=== PATIENT | female | born 1990 | race Caucasian/White ===

== ENCOUNTER 2016-11-01 12:36 | Emergency (ER) | payer MEDICAID ==
[~2016-11-01] VITALS: Ht 170.2 cm; Wt 78.0 kg
[2016-11-01 12:45] VITALS: BP 139/72; PULSE 90; RESP 16; TEMP 98.3; O2SAT 98
[2016-11-01] MEDS ORDERED: BENZ100 PO (13:06)
[2016-11-01] MEDS ORDERED: MOME17I EACH NARE (13:06)
[2016-11-01] MEDS ORDERED: IBUP800T23 PO (13:06)
[2016-11-01] MEDS ORDERED: AMOX500C PO (13:06)
--- NOTE | 2016-11-01 13:07 | PD ---
HPI Chief Complaint: Cold / Flu Symptoms Time Seen by Provider: 13:05 Travel History International Travel<30 days: No Contact w/Intl Traveler<30days: No Traveled to known affect area: No History of Present Illness HPI 26-year-old female presents to emergency Department with complaint of cough, nasal congestion, sore throat, bilateral ear pressure 4-5 days. Denies fever, vomiting. Denies chest pain, shortness of breath. Sore throat is worse in the morning and better throughout the day. Denies unusual drooling, lump in throat , difficulty swallowing. Has not taken any medications or tried any treatments to alleviate her symptoms. No known allergies. Her children are sick with similar symptoms. Has no other medical complaints. No other modifying factors or associated signs and symptoms. PFSH Past Medical History Medical History: Denies Significant Hx Tetanus Vaccination: Unknown ?: Unknown LMP: 10/27/16 : 3 Para: 2 Past Surgical History Surgical History: No Previous Surgery Social History Alcohol Use: Yes Tobacco Use: Yes Substance Use: No Allergies-Medications (Allergen,Severity, Reaction): Coded Allergies: No Known Allergies (Unverified , 11/01/16) Reported Meds & Prescriptions Reported Meds & Active Scripts Active Ibuprofen 800 Mg Tab 800 Mg PO Q6HR PRN Tessalon Perles (Benzonatate) 100 Mg Cap 100 Mg PO TID PRN Nasonex Nasal [place] (Mometasone Furoate) 50 Mcg/Act Naspr 2 [place] EACH NARE DAILY PRN Amoxicillin 500 Mg Cap 500 Mg PO BID 10 Days Review of Systems Except as stated in HPI: all other systems reviewed are Neg Physical Exam Narrative GENERAL: Well-nourished, well-developed female Patient, in no acute distress; afebrile, nontoxic-appearing SKIN: Warm and dry. No rash. HEAD: Atraumatic. Normocephalic. EYES: Pupils equal and round. No scleral icterus. No injection or drainage. ENT: Mucosa pink and moist. No erythema or exudates. No uvular edema. No uvular , palatal, or tonsillar deviation. Airway patent. EARS: Bilateral pinnae and external canals appear within normal limits. Bilateral tympanic membranes without erythema, dullness or perforation. NECK: Trachea midline. No lymphadenopathy. CARDIOVASCULAR: Regular rate and rhythm. No murmur appreciated. RESPIRATORY: No accessory muscle use. Clear to auscultation. Breath sounds equal bilaterally. No retractions or tachypnea. GASTROINTESTINAL: Abdomen soft, non-tender, nondistended. Hepatic and splenic margins not palpable. Bowel sounds are active 4 quadrants. MUSCULOSKELETAL: No obvious deformities. No clubbing. No cyanosis. No edema. NEUROLOGICAL: Awake and alert. Oriented 3. No obvious cranial nerve deficits. Motor grossly within normal limits. Normal speech. Moves all extremities. 5/5 strength to all extremities. PSYCHIATRIC: Appropriate mood and affect; insight and judgment normal. Data Data Last Documented VS Vital Signs Date Time Temp Pulse Resp B/P Pulse Ox O2 Delivery O2 Flow Rate FiO2 11/01/16 12:45 98.3 90 16 139/72 98 MDM Medical Decision Making Medical Screen Exam Complete: Yes Emergency Medical Condition: Yes Medical Record Reviewed: Yes Differential Diagnosis URI, sinusitis, viral illness, pharyngitis Narrative Course 26-year-old female with cough/cold symptoms 4-5 days. Suspecting viral illness. Patient is afebrile and nontoxic-appearing. Denies fever, vomiting. Patient requesting antibiotics. Amoxicillin, Nasonex nasal spray, Tessalon Perles, ibuprofen prescribed for home. Patient verbalizes understanding and agreement with treatment plan. Patient is medically cleared and stable for discharge. Discussed reasons to return to the emergency department. Instructed patient to follow up with primary care provider. Patient agrees with treatment plan. The patients vital signs are stable and the patient is stable for outpatient follow-up and treatment. Patient discharged home, stable and in no acute distress. Diagnosis Primary Impression: URI (upper respiratory infection) Qualified Code: J06.9 - Upper respiratory tract infection, unspecified type Referrals: Primary Care Physician Patient Instructions: Cold Symptoms (ED), General Instructions, Safe Use of Cough and Cold Medicines (ED), Upper Respiratory Infection (ED) Departure Forms: Tests/Procedures, Work Release Enter return to work date: Nov 01, 2016 Additional Instructions: Antibiotics as prescribed and complete full course Ibuprofen or Tylenol as instructed and as needed for fever/pain [id number] cough and cold medications as directed and as needed for symptom management Get plenty of sleep/rest Drink plenty of fluids to prevent dehydration; popsicles and Gatorade Use an air humidifier/turn off ceiling fans Follow-up with primary care provider Return immediately to the emergency department with worsening of symptoms Med/Other Pt SpecificInfo: Prescription(s) given Scripts Ibuprofen 800 Mg [id number] Mg PO Q6HR PRN (PAIN) #30 TAB Ref 0 Prov:Eliza JacquesP 11/01/16 Benzonatate (Tessalon Perles)100 Mg [id number] Mg PO TID PRN (COUGH) #10 CAP Ref 0 Prov:Eliza JacquesP 11/01/16 Mometasone Nasal [place] (Nasonex Nasal [place])50 Mcg/Act Naspr2 [place] EACH NARE DAILY PRN (NASAL CONGESTION) #1 BOTTLE Ref 0 Prov:Eliza JacquesP 11/01/16 Amoxicillin 500 Mg [id number] Mg PO BID 10 Days Ref 0 Prov:Eliza JacquesP 11/01/16 Disposition: 01 DISCHARGE HOME Condition: Stable Eliza Jacques Nov 01, 2016 13:07
== END 2016-11-01 13:13 | disposition home or self-care (01) ==
LOC: NEPK 12:36
DX: J06.9 Acute upper respiratory infection, unspecified (principal); R05 Cough; H93.93 Unspecified disorder of ear, bilateral; Z72.0 Tobacco use
CPT/HCPCS: 99284

== ENCOUNTER 2016-12-27 15:09 | Observation (INO) | payer MEDICAID ==
[~2016-12-27] VITALS: Ht 172.7 cm; Wt 77.0 kg
[~2016-12-27 15:09] MED LIST: AMOX500C PO; BENZ100 PO; IBUP800T23 PO; MOME17I EACH NARE
[2016-12-27 15:47] VITALS: BP 172/103; PULSE 117; RESP 18; TEMP 98.9; O2SAT 99
[2016-12-27] MEDS ORDERED: SODIUM CHLOR 0.9% 1000 ML INJ 1,000 ML IV SCH (16:16)
[2016-12-27 16:32] LABS: AUTOMATED NEUTROPHIL # 6.9 TH/MM3 (1.8-7.7); BASOPHIL % 0.3 % (0.0-2.0); BLOOD, URINE NEG (NEG); COMMENT (UR) CULT NOT INDICATED; CULTURE IF INDICATED CULT NOT INDICATED; GLUCOSE,URINE NEG (NEG); HEMATOCRIT 41.1 % (35.0-46.0); HEMO FLAGS DIFF FINAL; HYALINE CAST, URINE 43 /lpf (RARE); KETONE, URINE 10 mg/dL (NEG); LYMPH % 7.3 % (9.0-44.0); LYMPHOCYTE # 0.6 TH/MM3 (1.0-4.8); MEAN CELL VOLUME 94.1 FL (80.0-100.0); MEAN CORPUSCULAR HEMOGLOBIN 33.1 PG (27.0-34.0); MEAN CORPUSCULAR HGB CONC 35.2 % (32.0-36.0); MONO % 7.4 % (0.0-8.0); MUCUS URINE FEW /lpf (OCC); NITRITE,URINE NEG (NEG); PH, URINE 5.5 (5.0-8.5); PLATELET COUNT 171 TH/MM3 (150-450); RED BLOOD COUNT 4.37 MIL/MM3 (4.00-5.30); RED CELL DISTRIBUTION WIDTH 13.7 % (11.6-17.2); SQUAMOUS EPITHELIAL CELL URINE 2 /hpf (0-5); URINE COLOR YELLOW (YELLW/STRAW); WHITE BLOOD COUNT 8.1 TH/MM3 (4.0-11.0)
--- NOTE | 2016-12-27 16:38 | PD ---
HPI Chief Complaint: Seizure Time Seen by Provider: 16:35 Travel History International Travel<30 days: No Contact w/Intl Traveler<30days: No Traveled to known affect area: No History of Present Illness HPI 26-year-old female that presents to the ED for evaluation of seizure. Patient has a history of alcohol abuse and Xanax. she tells me that she's been abusing Xanax for the past 2 months. She is not given a prescription. Denies any chest pain or shortness of breath. States that she recently quit the Xanax about 8 days ago and she's been limiting her alcohol intake to wean herself out and today apparently per family and patient she had a seizure. She does not remember the seizure but per family member she had a witnessed episode of seizure. No head injury. She was helped to the floor. She denies any head injury. States that she does Xanax recreationally. She states that she's been feeling anxious for the past 8 days. No other medical issues. No history of depression or anxiety. No seizure history. No allergies to medication. Denies any other drug abuse. PFSH Past Medical History ?: Not : 3 Para: 2 Social History Alcohol Use: Yes Tobacco Use: Yes Substance Use: No Allergies-Medications (Allergen,Severity, Reaction): Coded Allergies: No Known Allergies (Unverified , 12/27/16) Reported Meds & Prescriptions Reported Meds & Active Scripts Active No Active Prescriptions or Reported Medications Review of Systems Except as stated in HPI: all other systems reviewed are Neg Physical Exam Narrative GENERAL: SKIN: Warm and dry. HEAD: Atraumatic. Normocephalic. EYES: Pupils equal and round. No scleral icterus. No injection or drainage. ENT: No nasal bleeding or discharge. Mucous membranes pink and moist. Tongue is midline. No uvula deviation. NECK: Trachea midline. No JVD. CARDIOVASCULAR: Regular rate and rhythm. RESPIRATORY: No accessory muscle use. Clear to auscultation. Breath sounds equal bilaterally. GASTROINTESTINAL: Abdomen soft, non-tender, nondistended. Hepatic and splenic margins not palpable. MUSCULOSKELETAL: Extremities without clubbing, cyanosis, or edema. No obvious deformities. Full range of motion of the upper and lower extremities bilaterally. 2+ pulses bilaterally. NEUROLOGICAL: Awake and alert. No obvious cranial nerve deficits. Motor grossly within normal limits. Five out of 5 muscle strength in the arms and legs. Normal speech. PSYCHIATRIC: Appropriate mood and affect; insight and judgment normal. Data Data Last Documented VS Vital Signs Date Time Temp Pulse Resp B/P Pulse Ox O2 Delivery O2 Flow Rate FiO2 12/27/16 17:59 18 100 Room Air 12/27/16 15:47 98.9 117 172/103 Orders Complete Blood Count With Diff (12/27/16 15:56) Comprehensive Metabolic Panel (12/27/16 15:56) Urinalysis - C+S If Indicated (12/27/16 15:56) Magnesium (Mg) (12/27/16 15:56) Iv Access Insert/Monitor (12/27/16 15:56) Drug Screen, Random Urine (12/27/16:56) Alcohol (Ethanol) (12/27/16:56) Lactic Acid (12/27/16 15:56) Sodium Chlor 0.9% 1000 Ml Inj (Ns 1000 M (12/27/16 16:16) Electrocardiogram (12/27/16 15:47) Lorazepam Inj (Ativan Inj) (12/27/16 17:45) Admit Order (Ed Use Only) (12/27/16 18:49) Comprehensive Metabolic Panel (12/28/16 06:00) Free Thyroxine (T4) (12/28/16 06:00) Hemoglobin (Hgb) A1c (12/28/16 06:00) Magnesium (Mg) (12/28/16 06:00) Phosphorus (Po4) (12/28/16 06:00) Thyroid Stimulating Hormone (12/28/16 06:00) Complete Blood Count With Diff (12/28/16 06:00) Place In Observation (12/27/16 ) Code Status (12/27/16 18:51) Vital Signs (Adult) Q4H (12/27/16 18:51) Neuro Checks Q4H (12/27/16 18:51) Activity Oob Ad Funmilayo (12/27/16 18:51) Emergency Services Director / Telemetry .CONTINUOUS (12/27/16 18:51) Intake + Output JAMEEL.QSHIFT (12/27/16 18:51) Diet Regular Basic (12/27/16 Dinner) D5-1/2 Ns + Kcl 20 Meq Inj (D5-1/2 Ns + (12/27/16 18:51) Sodium Chloride 0.9% Flush (Ns Flush) (12/27/16 19:00) Sodium Chloride 0.9% Flush (Ns Flush) (12/27/16 21:00) Acetaminophen (Tylenol) (12/27/16 19:00) Ondansetron Inj (Zofran Inj) (12/27/16 19:00) Metoclopramide Inj (Reglan Inj) (12/27/16 19:00) Labs Laboratory Tests Test 12/27/16 16:00 White Blood Count 8.1 TH/MM3 Red Blood Count 4.37 MIL/MM3 Hemoglobin 14.5 GM/DL Hematocrit 41.1 % Mean Corpuscular Volume 94.1 FL Mean Corpuscular Hemoglobin 33.1 PG Mean Corpuscular Hemoglobin 35.2 % Concent Red Cell Distribution Width 13.7 % Platelet Count 171 TH/MM3 Mean Platelet Volume 9.0 FL Neutrophils (%) (Auto) 85.0 % Lymphocytes (%) (Auto) 7.3 % Monocytes (%) (Auto) 7.4 % Eosinophils (%) (Auto) 0.0 % Basophils (%) (Auto) 0.3 % Neutrophils # (Auto) 6.9 TH/MM3 Lymphocytes # (Auto) 0.6 TH/MM3 Monocytes # (Auto) 0.6 TH/MM3 Eosinophils # (Auto) 0.0 TH/MM3 Basophils # (Auto) 0.0 TH/MM3 CBC Comment DIFF FINAL Differential Comment Urine Color YELLOW Urine Turbidity CLEAR Urine pH 5.5 Urine Specific [place] 1.025 Urine Protein 100 mg/dL Urine Glucose (UA) NEG mg/dL Urine Ketones 10 mg/dL Urine Occult Blood NEG Urine Nitrite NEG Urine Bilirubin NEG Urine Urobilinogen LESS THAN 2.0 MG/DL Urine Leukocyte Esterase NEG Urine RBC 3 /hpf Urine WBC 1 /hpf Urine Squamous Epithelial 2 /hpf Cells Urine Amorphous Sediment RARE Urine Hyaline Casts 43 /lpf Urine Mucus FEW /lpf Microscopic Urinalysis Comment CULT NOT INDICATED Sodium Level 134 MEQ/L Potassium Level 3.6 MEQ/L Chloride Level 93 MEQ/L Carbon Dioxide Level 29.9 MEQ/L Anion Gap 11 MEQ/L Blood Urea Nitrogen 3 MG/DL Creatinine 0.75 MG/DL Estimat Glomerular Filtration 93 ML/MIN Rate Random Glucose 113 MG/DL Calcium Level 10.0 MG/DL Magnesium Level 2.1 MG/DL Total Bilirubin 0.4 MG/DL Aspartate Amino Transf 53 U/L (AST/SGOT) Alanine Aminotransferase 74 U/L (ALT/SGPT) Alkaline Phosphatase 126 U/L Total Protein 7.7 GM/DL Albumin 4.1 GM/DL Urine Opiates Screen NEG Urine Barbiturates Screen NEG Urine Amphetamines Screen NEG Urine Benzodiazepines Screen POS Urine Cocaine Screen NEG Urine Cannabinoids Screen POS Ethyl Alcohol Level LESS THAN 3 MG/DL MDM Medical Decision Making Medical Screen Exam Complete: Yes Emergency Medical Condition: Yes Medical Record Reviewed: Yes Interpretation(s) CBC & BMP Diagram 12/27/16 16:00 tox positive for benzos and marijuana Differential Diagnosis Seizure versus alcohol withdrawal versus benzo withdrawal versus drug abuse Narrative Course 26-year-old female that presents to the ED for evaluation of seizure. Patient was properly examined and was found to have signs and symptoms which appeared to be more consistent with seizure from withdrawal. Labs ordered. IV fluids were started. Labs showed positive for benzos and marijuana. Case was discussed in my attending Dr. Marquez who recommends admission for observation for alcohol withdrawal and benzo withdrawal. Patient is still tachycardic and somewhat symptomatic. Recommendation at this time for admission for observation. Patient agrees with this plan. Case discussed with Dr. Crisostomo who is in agreement with admission. Diagnosis Primary Impression: Alcohol withdrawal Qualified Code: F10.230 - Alcohol withdrawal syndrome without complication Admitting Information Admitting Physician Requests: Observation Scripts No Active Prescriptions or Reported Meds Austin Holland Dec 27, 2016 16:38
[2016-12-27 16:55] LABS: ALT (GPT) 74 U/L (10-53); ANION GAP 11 MEQ/L (5-15); AST (GOT) 53 U/L (15-37); BICARBONATE 29.9 MEQ/L (21.0-32.0); BLOOD UREA NITROGEN 3 MG/DL (7-18); CHLORIDE 93 MEQ/L (98-107); GLOMERULAR FILTRATION RATE 93 ML/MIN (>89); MAGNESIUM 2.1 MG/DL (1.5-2.5); POTASSIUM 3.6 MEQ/L (3.5-5.1); SODIUM (NA) 134 MEQ/L (136-145)
[2016-12-27 16:57] LABS: ALKALINE PHOSPHATASE 126 U/L (45-117); TOTAL BILIRUBIN ADULT 0.4 MG/DL (0.2-1.0)
[2016-12-27 17:05] LABS: ALCOHOL LESS THAN 3 MG/DL (0-5)
[2016-12-27] MEDS ORDERED: LORazepam 2 MG/ML VIAL IV PUSH ONE (17:45)
[2016-12-27] MEDS ORDERED: LORazepam 1 MG TAB PO PRN (19:00)
[2016-12-27] MEDS ORDERED: SODIUM CHLORIDE 0.9% FLUSH 10 ML FLUSH IV FLUSH PRN ×2 (19:00)
[2016-12-27] MEDS ORDERED: MAGNESIUM HYDROXIDE SUSP 30 ML CUP PO PRN (19:00)
[2016-12-27] MEDS ORDERED: ONDANSETRON HCL 4 MG/2 ML VIAL IV PRN (19:00)
[2016-12-27] MEDS ORDERED: FLUMAZENIL 0.5 MG/5 ML VIAL IV PUSH PRN ×2 (19:00)
[2016-12-27] MEDS ORDERED: MORPHINE SULFATE 4 MG/ML INJ IV PRN ×3 (19:00)
[2016-12-27] MEDS ORDERED: METOCLOPRAMIDE HCL 10 MG/2 ML VIAL IV PUSH PRN (19:00)
[2016-12-27] MEDS ORDERED: BISACODYL 10 MG SUPP RECTAL PRN (19:00)
[2016-12-27] MEDS ORDERED: ACETAMINOPHEN 325 MG TAB PO PRN ×2 (19:00)
[2016-12-27] MEDS ORDERED: NALOXONE HCL 0.4 MG/ML AMP IV PRN (19:00)
[2016-12-27] MEDS ORDERED: oxyCODONE/ACETAMINOPHEN 10 MG/325 MG TAB PO PRN (19:00)
[2016-12-27] MEDS ORDERED: LORazepam 2 MG/ML VIAL IV PUSH PRN ×4 (19:00)
[2016-12-27] MEDS ORDERED: LORazepam 2 MG TAB PO PRN (19:00)
[2016-12-27] MEDS ORDERED: ONDANSETRON HCL 4 MG/2 ML VIAL IVP PRN (19:00)
[2016-12-27] MEDS ORDERED: PROCHLORPERAZINE 25 MG SUPP RECTAL PRN (19:00)
[2016-12-27] MEDS ORDERED: SENNOSIDES 8.6 MG TAB PO PRN (19:00)
[2016-12-27] MEDS ORDERED: oxyCODONE/ACETAMINOPHEN 5 MG/325 MG TAB PO PRN (19:00)
[2016-12-27] MEDS ORDERED: cloNIDine HCL 0.1 MG TAB PO PRN (19:00)
[2016-12-27] MEDS ORDERED: LACTULOSE SYRUP 20 GM/30 ML CUP PO PRN (19:00)
[2016-12-27 19:11] VITALS: BP 149/97; PULSE 103; RESP 18; TEMP 98.7; O2SAT 100
[2016-12-27 19:43] VITALS: O2SAT 99
[2016-12-27 19:46] LABS: MAGNESIUM 2.4 MG/DL (1.5-2.5)
[2016-12-27] MEDS: PANTOPRAZOLE SOD 40 MG DELAYED RELEASE TAB PO SCH (19:58)
[2016-12-27] MEDS: THIAMINE HCL 100 MG TAB PO SCH (19:58)
[2016-12-27] MEDS: D5-1/2 NS + KCL 20 MEQ INJ 1,000 ML IV SCH ×2 (19:58→21:48)
[2016-12-27] MEDS: FOLIC ACID 1 MG TAB PO SCH (19:58)
[2016-12-27] MEDS: MULTIVITAMINS/MINERALS THERAPEUTIC TAB PO SCH (20:54)
[2016-12-27] MEDS ORDERED: SODIUM CHLORIDE 0.9% FLUSH 10 ML FLUSH IV FLUSH SCH (21:00)
[2016-12-27] MEDS: SODIUM CHLORIDE 0.9% FLUSH 10 ML FLUSH IV FLUSH SCH (21:02)
[2016-12-27 21:28] VITALS: BP 144/94; PULSE 104; RESP 18; TEMP 98.1; O2SAT 99
[2016-12-27] MEDS: cloNIDine HCL 0.1 MG TAB PO SCH (21:47)
[2016-12-27] MEDS: DOCUSATE SODIUM 50 MG/SENNA 8.6 MG TAB PO SCH (21:47)
[2016-12-27] MEDS: HEPARIN SODIUM - SQ 10,000 UNITS/ML VIAL SQ SCH (21:48)
--- NOTE | 2016-12-28 00:36 | EKG ---
Date Performed: 12/27/2016 Time Performed: 15:47:22 PTAGE: 26 years EKG: SINUS TACHYCARDIA ABNORMAL RHYTHM ECG Compared to the PREVIOUS TRACING from 04/21/16, rate has increased DOCTOR: Denilson Leary Interpretating Date/Time 12/28/2016 00:35:47
[2016-12-28 01:23] VITALS: BP 127/78; PULSE 90; RESP 18; TEMP 98; O2SAT 99
[2016-12-28 03:24] VITALS: BP 130/70; PULSE 65; RESP 18; TEMP 98.2; O2SAT 98
[2016-12-28] MEDS: cloNIDine HCL 0.1 MG TAB PO SCH ×2 (06:02→14:00)
[2016-12-28] MEDS: D5-1/2 NS + KCL 20 MEQ INJ 1,000 ML IV SCH (06:49)
[2016-12-28 07:47] VITALS: PULSE 77
[2016-12-28] MEDS: FOLIC ACID 1 MG TAB PO SCH (08:36)
[2016-12-28] MEDS: SODIUM CHLORIDE 0.9% FLUSH 10 ML FLUSH IV FLUSH SCH (08:36)
[2016-12-28] MEDS: PANTOPRAZOLE SOD 40 MG DELAYED RELEASE TAB PO SCH (08:36)
[2016-12-28] MEDS: THIAMINE HCL 100 MG TAB PO SCH (08:36)
[2016-12-28] MEDS: MULTIVITAMINS/MINERALS THERAPEUTIC TAB PO SCH (08:36)
[2016-12-28] MEDS: HEPARIN SODIUM - SQ 10,000 UNITS/ML VIAL SQ SCH (08:36)
[2016-12-28] MEDS: DOCUSATE SODIUM 50 MG/SENNA 8.6 MG TAB PO SCH (08:37)
--- NOTE | 2016-12-28 11:40 | HHI.HP ---
[place] [facility] [employer] Primary Care Physician No Primary Care Physician Admission Diagnosis alcohol and benzo withdrawal Diagnoses: (1) Alcohol withdrawal Diagnosis: Principal (2) Hypokalemia Diagnosis: Principal (3) Alcohol withdrawal seizure Diagnosis: Principal (4) Withdrawal seizures Diagnosis: Principal (5) Benzodiazepine withdrawal Diagnosis: Principal Chief Complaint: Possible seizure Travel History International Travel<30 Days: No Contact w/Intl Traveler <30 Da: No Traveled to Known Affected Are: No History of Present Illness 26-year-old female that presents to the ED for evaluation of seizure. Patient has a history of alcohol abuse and Xanax. she tells me that she's been abusing Xanax for the past 2 months. She is not given a prescription. Denies any chest pain or shortness of breath. States that she recently quit the Xanax about 8 days ago and she's been limiting her alcohol intake to wean herself out and today apparently per family and patient she had a seizure. She does not remember the seizure but per family member she had a witnessed episode of seizure. No head injury. She was helped to the floor. She denies any head injury. States that she does Xanax recreationally. She states that she's been feeling anxious for the past 8 days. No other medical issues. No history of depression or anxiety. No seizure history. No allergies to medication. Denies any other drug abuse. Patient has a issue with drinking a bottle of wine 1.5 L daily Has been doing that frequently as well as Xanax that she gets on the streets States she recently went through a breakup with her boyfriend Prior to that she states she was "partying heavy" Review of Systems Constitutional: DENIES: Diaphoretic episodes, Fatigue, Fever, Weight gain, Weight loss, Chills, Dizziness, Change in appetite Eyes: DENIES: Blurred vision, Diplopia, Eye inflammation, Eye pain Ears, nose, mouth, throat: DENIES: Tinnitus, Hearing loss, Vertigo Respiratory: DENIES: Apneas, Cough, Snoring, Wheezing Cardiovascular: DENIES: Chest pain, Palpitations, Syncope, Dyspnea on Exertion Gastrointestinal: DENIES: Abdominal pain, Black stools Musculoskeletal: DENIES: Joint pain, Muscle aches Integumentary: DENIES: Abnormal pigmentation, Pruritus Hematologic/lymphatic: DENIES: Bruising, Lymphadenopathy Immunologic/allergic: DENIES: Eczema, Urticaria Neurologic: COMPLAINS OF: Seizures, DENIES: Abnormal gait, Headache, Localized weakness, Paresthesias, Speech Problems Psychiatric: COMPLAINS OF: Anxiety, Depression, DENIES: Confusion, Mood changes, Hallucinations, Agitation, Suicidal Ideation, Homicidal Ideation Past Family Social History Past Medical History Anxiety. Depression Tobacco abuse Alcohol abuse Benzodiazepine use Past Surgical History Denies Reported Medications Only Xanax that she gets without a prescription Occasional Motrin Allergies: Coded Allergies: No Known Allergies (Unverified , 12/27/16) Active Ordered Medications Current Medications Sodium Chloride (NS 1000 ml Inj) 1,000 ml @ 1,000 mls/hr Q1H IV Last administered on 12/27/16 18:40; Start 12/27/16 at 16:16; Stop 12/27/16 at 17:15 ; Status DC Lorazepam 1 mg 1 mg ONCE ONCE IV PUSH Last administered on 12/27/16 18:40; Start 12/27/16 at 17:45; Stop 12/27/16 at 17:46; Status DC Potassium Chloride/Dextrose/ Sod Cl (D5-1/2 NS + KCl 20 Meq Inj) 1,000 ml @ 100 mls/hr Q10H IV Last administered on 12/28/16 06:49; Start 12/27/16 at 20: 00 Sodium Chloride (NS Flush) 2 ml UNSCH PRN IV FLUSH FLUSH AFTER USING IV ACCESS ; Start 12/27/16 at 19:00 Sodium Chloride (NS Flush) 2 ml BID IV FLUSH Last administered on 12/28/16 08: 36; Start 12/27/16 at 21:00 Acetaminophen (Tylenol) 650 mg Q4H PRN PO TEMP > 100.4; Start 12/27/16 at 19:00 Ondansetron HCl (Zofran Inj) 4 mg Q6H PRN IVP NAUSEA OR VOMITING; Start at 19:00 Metoclopramide HCl (Reglan Inj) 5 mg Q6H PRN IV PUSH NAUSEA OR VOMITING; Start 12/27/16 at 19:00 Prochlorperazine (Compazine Supp) 25 mg Q12H PRN RECTAL NAUSEA OR VOMITING; Start 12/27/16 at 19:00 Heparin Sodium (Porcine) (Heparin Inj) 5,000 units Q12H SQ Last administered on 12/28/16 08:36; Start 12/27/16 at 21:00 Acetaminophen (Tylenol) 650 mg Q6H PRN PO PAIN SCALE 1 TO 2; Start 12/27/16 at 19:00 Oxycodone/ Acetaminophen (Percocet 5-325 Mg) 1 tab Q6H PRN PO PAIN SCALE 3 TO 5 Last administered on 12/27/16 22:42; Start 12/27/16 at 19:00 Oxycodone/ Acetaminophen (Percocet 10-325 Mg) 1 tab Q6H PRN PO PAIN SCALE 6 TO 10; Start 12/27/16 at 19:00 Morphine Sulfate (Morphine Inj) 2 mg Q3H PRN IV Pain 3-5; if unable to take PO ; Start 12/27/16 at 19:00 Morphine Sulfate (Morphine Inj) 4 mg Q3H PRN IV Pain 6-10;if unable to take PO ; Start 12/27/16 at 19:00 Morphine Sulfate (Morphine Inj) 4 mg Q3H PRN IV BREAKTHROUGH PAIN; Start at 19:00 Naloxone HCl (Narcan Inj) 0.4 mg UNSCH PRN IV SEE LABEL COMMENTS; Start at 19:00 Senna/Docusate Sodium (Priti-Colace) 1 tab BID PO Last administered on 21:47; Start 12/27/16 at 21:00 Magnesium Hydroxide (Milk Of Magnesia Liq) 30 ml Q12H PRN PO MILD - MODERATE CONSTIPATION; Start 12/27/16 at 19:00 Sennosides (Senokot) 17.2 mg Q12H PRN PO MODERATE - SEVERE CONSTIPATION; Start 12/27/16 at 19:00 Bisacodyl (Dulcolax Supp) 10 mg DAILY PRN RECTAL SEVERE CONSITIPATION; Start at 19:00 Lactulose (Lactulose Liq) 30 ml DAILY PRN PO SEVERE CONSITIPATION; Start at 19:00 Flumazenil (Romazicon Inj) 0.2 mg Q1M PRN IV PUSH SEE LABEL COMMENTS; Start at 19:00; Status UNV Lorazepam (Ativan) 1 mg Q4H PRN PO CIWA 8 - 10; Start 12/27/16 at 19:00 Lorazepam (Ativan Inj) 1 mg Q4H PRN IV PUSH CIWA 8 - 10; Start 12/27/16 at 19: 00 Lorazepam (Ativan) 2 mg Q2H PRN PO CIWA 11-14; Start 12/27/16 at 19:00 Lorazepam (Ativan Inj) 2 mg Q2H PRN IV PUSH CIWA 11-14; Start 12/27/16 at 19:00 Lorazepam (Ativan Inj) 2 mg Q1H PRN IV PUSH CIWA 15-20; Start 12/27/16 at 19:00 Lorazepam (Ativan Inj) 2 mg Q15M PRN IV PUSH CIWA > 20; Start 12/27/16 at 19:00 Sodium Chloride (NS Flush) 2 ml UNSCH PRN IV FLUSH FLUSH AFTER USING IV ACCESS ; Start 12/27/16 at 19:00; Status UNV Sodium Chloride (NS Flush) 2 ml BID IV FLUSH ; Start 12/27/16 at 21:00; Status UNV Folic Acid (Folate) 1 mg DAILY PO Last administered on 12/28/16 08:36; Start 12/27/16 at 20:00; Stop 01/01/17 at 19:59 Thiamine HCl (Vitamin B1) 100 mg DAILY PO Last administered on 12/28/16 08:36 ; Start 12/27/16 at 20:00 Multivitamins/ Minerals Therapeutic (Theragran M Tab) 1 tab DAILY PO Last administered on 12/28/16 08:36; Start 12/27/16 at 20:00; Stop 01/01/17 at 19:59 Ondansetron HCl (Zofran Inj) 4 mg Q6H PRN IV NAUSEA OR VOMITING; Start at 19:00; Status UNV Pantoprazole Sodium (Protonix) 40 mg DAILY PO Last administered on 12/28/16 08 :36; Start 12/27/16 at 20:00 Clonidine (Catapres) 0.1 mg Q8HR PO Last administered on 12/28/16 06:02; Start 12/27/16 at 22:00 Clonidine (Catapres) 0.1 mg Q6H PRN PO SEE LABEL COMMENTS; Start 12/27/16 at 19 :00 Flumazenil (Romazicon Inj) 0.2 mg Q1M PRN IV PUSH SEE LABEL COMMENTS; Start at 19:00 Family History Heart attacks tobacco abuse and breast cancer Social History Tobacco abuse smokes daily Alcohol abuse drinks a bottle of wine 1.5 L daily Marijuana use Xanax abuse when she can get it Physical Exam Vital Signs Vital Signs Date Time Temp Pulse Resp B/P Pulse Ox O2 Delivery O2 Flow Rate FiO2 12/28/16 03:24 98.2 65 18 130/70 98 12/28/16 01:23 98.0 90 18 127/78 99 12/27/16 23:42 20 12/27/16 21:28 98.1 104 18 144/94 99 12/27/16 19:43 99 21 12/27/16 19:11 98.7 103 18 149/97 100 Room Air 12/27/16 17:59 18 100 Room Air 12/27/16 15:47 98.9 117 18 172/103 99 Room Air Physical Exam GENERAL: This is a well-nourished, well-developed patient, in no apparent distress. SKIN: No rashes, ecchymoses or lesions. Cool and dry. Multiple tattoos HEAD: Atraumatic. Normocephalic. No temporal or scalp tenderness. EYES: Pupils equal round and reactive. Extraocular motions intact. No scleral icterus. No injection or drainage. ENT: Nose without bleeding, purulent drainage or septal hematoma. Throat without erythema, tonsillar hypertrophy or exudate. Uvula midline. Airway patent. Tongue is midline NECK: Trachea midline. No JVD or lymphadenopathy. Supple, nontender, no meningeal signs. CARDIOVASCULAR: Regular rate and rhythm without murmurs, gallops, or rubs. S1- S2 no S3 or S4 no heave or thrill or rub or gallop. RESPIRATORY: Clear to auscultation. Breath sounds equal bilaterally. No wheezes , rales, or rhonchi. GASTROINTESTINAL: Abdomen soft, non-tender, nondistended. No hepato-splenomegaly , or palpable masses. No guarding. MUSCULOSKELETAL: Extremities without clubbing, cyanosis, or edema. No joint tenderness, effusion, or edema noted. No calf tenderness. Negative Homans sign bilaterally. NEUROLOGICAL: Awake and alert. Cranial nerves II through XII intact. Motor and sensory grossly within normal limits. Five out of 5 muscle strength in all muscle groups. Normal speech. Insight and judgment are good mood and behavior is appropriate Laboratory Laboratory Tests Test 12/27/16 12/27/16 16:00 19:15 White Blood Count 8.1 Red Blood Count 4.37 Hemoglobin 14.5 Hematocrit 41.1 Mean Corpuscular Volume 94.1 Mean Corpuscular Hemoglobin 33.1 Mean Corpuscular Hemoglobin 35.2 Concent Red Cell Distribution Width 13.7 Platelet Count 171 Mean Platelet Volume 9.0 Neutrophils (%) (Auto) 85.0 Lymphocytes (%) (Auto) 7.3 Monocytes (%) (Auto) 7.4 Eosinophils (%) (Auto) 0.0 Basophils (%) (Auto) 0.3 Neutrophils # (Auto) 6.9 Lymphocytes # (Auto) 0.6 Monocytes # (Auto) 0.6 Eosinophils # (Auto) 0.0 Basophils # (Auto) 0.0 CBC Comment DIFF FINAL Differential Comment Urine Color YELLOW Urine Turbidity CLEAR Urine pH 5.5 Urine Specific [place] 1.025 Urine Protein 100 Urine Glucose (UA) NEG Urine Ketones 10 Urine Occult Blood NEG Urine Nitrite NEG Urine Bilirubin NEG Urine Urobilinogen LESS THAN 2.0 Urine Leukocyte Esterase NEG Urine RBC 3 Urine WBC 1 Urine Squamous Epithelial 2 Cells Urine Amorphous Sediment RARE Urine Hyaline Casts 43 Urine Mucus FEW Microscopic Urinalysis Comment CULT NOT INDICATED Sodium Level 134 Potassium Level 3.6 Chloride Level 93 Carbon Dioxide Level 29.9 Anion Gap 11 Blood Urea Nitrogen 3 Creatinine 0.75 Estimat Glomerular Filtration 93 Rate Random Glucose 113 Calcium Level 10.0 Magnesium Level 2.1 2.4 Total Bilirubin 0.4 Aspartate Amino Transf 53 (AST/SGOT) Alanine Aminotransferase 74 (ALT/SGPT) Alkaline Phosphatase 126 Total Protein 7.7 Albumin 4.1 Urine Opiates Screen NEG Urine Barbiturates Screen NEG Urine Amphetamines Screen NEG Urine Benzodiazepines Screen POS Urine Cocaine Screen NEG Urine Cannabinoids Screen POS Ethyl Alcohol Level LESS THAN 3 Lactic Acid Level 0.9 Phosphorus Level 4.7 Result Diagram: 12/27/16 1600 12/27/16 1600 Assessment and Plan Problem List: (1) Alcohol withdrawal ICD Code: F10.239 Status: Acute (2) Hypokalemia ICD Code: E87.6 Status: Acute (3) Alcohol withdrawal seizure ICD Code: F10.239 Status: Acute (4) Withdrawal seizures ICD Code: F19.239 Status: Acute (5) Benzodiazepine withdrawal ICD Code: F13.239 Status: Acute (6) Alcohol abuse ICD Code: F10.10 Status: Acute Assessment and Plan Seizure possibly due to alcohol or benzodiazepine withdrawal 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
--- NOTE | 2016-12-28 11:40 | HHI.DCPOC ---
Discharge Care Plan Diagnosis: (1) Benzodiazepine withdrawal (2) Withdrawal seizures (3) Alcohol withdrawal seizure (4) Alcohol withdrawal (5) Hypokalemia (6) Alcohol abuse Your Health Problems Are: Anxiety Goals to Promote Your Health * To prevent worsening of your condition and complications * To maintain your health at the optimal level Directions to Meet Your Goals Take your medications as prescribed Follow your dietary instruction Follow activity as directed Keep your appointments as scheduled Take your immunizations and boosters as scheduled If your symptoms worsen call your PCP, if no PCP go to Urgent Care Center or Emergency Room Smoking is Dangerous to Your Health. Avoid second hand smoke Call the 24-hour hour crisis hotline for domestic abuse at Jono Crisostomo DO Dec 28, 2016 11:40
--- NOTE | 2016-12-28 11:44 | HHI.DS ---
Discharge Summary Admission Date Dec 27, 2016 at 18:51 Discharge Date: Dec 28, 2016 Admitting Diagnosis alcohol and benzo withdrawal (1) Alcohol withdrawal ICD Code: F10.239 Diagnosis: Principal (2) Hypokalemia ICD Code: E87.6 Diagnosis: Secondary (3) Alcohol withdrawal seizure ICD Code: F10.239 Diagnosis: Principal (4) Withdrawal seizures ICD Code: F19.239 Diagnosis: Principal (5) Benzodiazepine withdrawal ICD Code: F13.239 Diagnosis: Principal (6) Alcohol abuse ICD Code: F10.10 Diagnosis: Secondary Procedures None Brief History - From Admission 26-year-old female that presents to the ED for evaluation of seizure. Patient has a history of alcohol abuse and Xanax. she tells me that she's been abusing Xanax for the past 2 months. She is not given a prescription. Denies any chest pain or shortness of breath. States that she recently quit the Xanax about 8 days ago and she's been limiting her alcohol intake to wean herself out and today apparently per family and patient she had a seizure. She does not remember the seizure but per family member she had a witnessed episode of seizure. No head injury. She was helped to the floor. She denies any head injury. States that she does Xanax recreationally. She states that she's been feeling anxious for the past 8 days. No other medical issues. No history of depression or anxiety. No seizure history. No allergies to medication. Denies any other drug abuse. Patient has a issue with drinking a bottle of wine 1.5 L daily Has been doing that frequently as well as Xanax that she gets on the streets States she recently went through a breakup with her boyfriend Prior to that she states she was "partying heavy CBC/BMP: 12/27/16 1600 12/27/16 1600 Significant Findings Laboratory Tests Test 12/27/16 16:00 Neutrophils (%) (Auto) 85.0 % (16.0-70.0) Lymphocytes (%) (Auto) 7.3 % (9.0-44.0) Lymphocytes # (Auto) 0.6 TH/MM3 (1.0-4.8) Urine Protein 100 mg/dL (NEG-TRACE) Urine Ketones 10 mg/dL (NEG) Urine Mucus FEW /lpf (OCC) Sodium Level 134 MEQ/L (136-145) Chloride Level 93 MEQ/L (98-107) Blood Urea Nitrogen 3 MG/DL (7-18) Random Glucose 113 MG/DL (74-106) Aspartate Amino Transf 53 U/L (15-37) (AST/SGOT) Alanine Aminotransferase 74 U/L (10-53) (ALT/SGPT) Alkaline Phosphatase 126 U/L (45-117) Urine Benzodiazepines Screen POS (NEG) Urine Cannabinoids Screen POS (NEG) PE at Discharge GENERAL: Awake alert oriented talkative and cooperative SKIN: Warm and dry. HEAD: Atraumatic. Normocephalic. EYES: Pupils equal and round. No scleral icterus. No injection or drainage. ENT: No nasal bleeding or discharge. Mucous membranes pink and moist. NECK: Trachea midline. No JVD. CARDIOVASCULAR: Regular rate and rhythm. S1-S2 no S3 or S4 RESPIRATORY: No accessory muscle use. Clear to auscultation. Breath sounds equal bilaterally. GASTROINTESTINAL: Abdomen soft, non-tender, nondistended. Hepatic and splenic margins not palpable. MUSCULOSKELETAL: Extremities without clubbing, cyanosis, or edema. No obvious deformities. NEUROLOGICAL: Awake and alert. No obvious cranial nerve deficits. Motor grossly within normal limits. Five out of 5 muscle strength in the arms and legs. Normal speech. PSYCHIATRIC: Appropriate mood and affect; insight and judgment normal. Hospital Course 26-year-old female that presents to the ED for evaluation of seizure. Patient has a history of alcohol abuse and Xanax. she tells me that she's been abusing Xanax for the past 2 months. She is not given a prescription. Denies any chest pain or shortness of breath. States that she recently quit the Xanax about 8 days ago and she's been limiting her alcohol intake to wean herself out and today apparently per family and patient she had a seizure. She does not remember the seizure but per family member she had a witnessed episode of seizure. No head injury. She was helped to the floor. She denies any head injury. States that she does Xanax recreationally. She states that she's been feeling anxious for the past 8 days. No other medical issues. No history of depression or anxiety. No seizure history. No allergies to medication. Denies any other drug abuse. 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 if another seizure occurs than that has to restart again Follow up Referrals: PCP Follow-up - 1 Week New Medications: Chlordiazepoxide HCl (Chlordiazepoxide HCl) 25 Mg Capsule 1 CAP PO Q6H PRN ANXIETY Days 10 Ref 0 CAP NS Nicotine Patch (Nicoderm CQ Patch) 14 Mg/24 Hr Patch 14 MG T-DERMAL DAILY PRN CRAVINGS #30 Ref 0 PATCH Folic Acid (Folic Acid) 1 Mg Tablet 1 MG PO DAILY Alcohol Detox #30 TAB Multiple Vitamins W/ Minerals (Thera M Plus) 1 Tab 1 TAB PO DAILY Alcohol Detox #30 TAB Pantoprazole (Pantoprazole) 40 Mg Tab 40 MG PO DAILY Dyspepsia #30 TAB Thiamine HCl (Gnp Vitamin B-1) 100 Mg Tab 100 MG PO DAILY Alcohol Detox #30 TAB Jono Crisostomo DO Dec 28, 2016 11:44
[2016-12-28] MEDS ORDERED: PANT40TA3 PO (11:53)
[2016-12-28] MEDS ORDERED: NICO14DI4 T-DERMAL (11:53)
[2016-12-28] MEDS ORDERED: THERM PO (11:53)
[2016-12-28] MEDS ORDERED: FOLI1TAB6 PO (11:53)
[2016-12-28] MEDS ORDERED: GNP100TA3 PO (11:53)
[2016-12-28] MEDS ORDERED: CHLO25CA9 PO (11:53)
--- NOTE | 2016-12-28 12:50 | RADRPT ---
EXAM DATE/TIME: 12/28/2016 12:39 [place] COMPARISON: No previous studies available for comparison. INDICATIONS : Syncope episode yesterday. RADIATION DOSE: 33.28 CTDIvol (mGy) MEDICAL HISTORY : Hypertension. SURGICAL HISTORY : None. ENCOUNTER: Initial ACUITY: 2 days PAIN SCALE: 2/10 LOCATION: Bilateral cranial TECHNIQUE: Multiple contiguous axial images were obtained of the head. Using automated exposure control and adj ustment of the mA and/or kV according to patient size, radiation dose was kept as low as reasonably a chievable to obtain optimal diagnostic quality images. DICOM format image data is available electro nically for review and comparison. FINDINGS: CEREBRUM: The ventricles are normal for age. No evidence of midline shift, mass lesion, hemorrhage or acute in farction. No extra-axial fluid collections are seen. POSTERIOR FOSSA: The cerebellum and brainstem are intact. The 4th ventricle is midline. The cerebellopontine angle i s unremarkable. EXTRACRANIAL: The visualized portion of the orbits is intact. SKULL: The calvaria is intact. No evidence of skull fracture. CONCLUSION: Negative noncontrast head CT. Donny Melgoza MD on December 28, 2016 at 12:48 Board Certified Radiologist. This report was verified electronically.
[2016-12-28 13:15] VITALS: BP 119/77; PULSE 84; RESP 18; TEMP 98.5; O2SAT 99
--- NOTE | 2016-12-28 15:09 | EKG ---
Date Performed: 12/28/2016 Time Performed: 01:20:31 PTAGE: 26 years EKG: Sinus rhythm NON-SPECIFIC ST ELEVATION IN V2 NORMAL ECG PREVIOUS TRACING : 12/27/2016 15.47 Compared to prior tracing no significant change DOCTOR: Denilson Leary Interpretating Date/Time 12/28/2016 15:07:52
[2016-12-28 16:06] LABS: AUTOMATED NEUTROPHIL # 3.5 TH/MM3 (1.8-7.7); BASOPHIL % 0.7 % (0.0-2.0); EOSINOPHIL % 0.7 % (0.0-4.0); HEMO FLAGS DIFF FINAL; LYMPH % 13.4 % (9.0-44.0); LYMPHOCYTE # 0.6 TH/MM3 (1.0-4.8); MEAN CELL VOLUME 98.3 FL (80.0-100.0); MEAN CORPUSCULAR HEMOGLOBIN 32.5 PG (27.0-34.0); MONO % 8.2 % (0.0-8.0); PLATELET COUNT 143 TH/MM3 (150-450); RED BLOOD COUNT 4.07 MIL/MM3 (4.00-5.30); RED CELL DISTRIBUTION WIDTH 13.7 % (11.6-17.2); WHITE BLOOD COUNT 4.5 TH/MM3 (4.0-11.0)
[2016-12-28 16:12] LABS: INTERNATIONAL NORMALIZED RATIO 0.9 RATIO; PROTHROMBIN TIME - PATIENT 10.2 SEC (9.8-11.6)
[2016-12-28 16:49] LABS: ALKALINE PHOSPHATASE 109 U/L (45-117); ALT (GPT) 82 U/L (10-53); ANION GAP 6 MEQ/L (5-15); AST (GOT) 103 U/L (15-37); BICARBONATE 30.7 MEQ/L (21.0-32.0); BLOOD UREA NITROGEN 5 MG/DL (7-18); CHLORIDE 98 MEQ/L (98-107); FREE T4 0.91 NG/DL (0.76-1.46); GLOMERULAR FILTRATION RATE 79 ML/MIN (>89); MAGNESIUM 2.4 MG/DL (1.5-2.5); SODIUM (NA) 135 MEQ/L (136-145); TOTAL BILIRUBIN ADULT 0.4 MG/DL (0.2-1.0)
--- NOTE | 2016-12-28 17:43 | MG ---
cc: JULIENNE BLUE Lab No: Date: 12/28/2016 Age: Sex: F Race: ELECTROENCEPHALOGRAM NUMBER [id number] INTRODUCTION Seizure. 26. Alcohol. Substance abuse. MEDICATIONS 1. Clonidine. 2. Percocet. 3. Benzodiazepines. DESCRIPTION A symmetric 10 Hz 60 microvolt posterior rhythm is seen. With photic stimulation symmetric posterior driving is seen especially at the higher frequencies. No hemisphere asymmetries are noted. No epileptiform or seizure activity is seen. Some bitemporal muscle artifact is noted. Photic stimulation was ____ Hyperventilation was performed without significant change in the background. IMPRESSION Normal awake EEG. No evidence for focal or diffuse abnormality. MD CHERELLE Escalante/KK /5:10 PM /5:15 PM
[2016-12-28 22:50] LABS: HEMOGLOBIN A1b 0.7 %; HEMOGLOBIN Ao 87.6 %; HEMOGLOBIN F 0.6 %; HEMOGLOBIN LA1C 1.8 %; HEMOGLOBIN P3 3.2 %
== END 2016-12-28 19:01 | disposition home or self-care (01) ==
LOC: NEPE 15:09 → NEDA 18:51 → NEPFCDU 21:12
PROVIDERS: ADMIT Hospitalist; ATTEND Hospitalist
DX: F10.230 Alcohol dependence with withdrawal, uncomplicated (principal); R56.9 Unspecified convulsions; F13.239 Sedative, hypnotic or anxiolytic dependence with withdrawal, unspecified; F12.90 Cannabis use, unspecified, uncomplicated; E87.6 Hypokalemia; F41.9 Anxiety disorder, unspecified; I10 Essential (primary) hypertension; Z72.0 Tobacco use
CPT/HCPCS: 70450; 80053; 80307; 81001; 82948; 83036; 83605; 83735; 84100; 84439; 84443; 85025; 85610; 93005; 95819; 96361; 96365; 96372; 96375; 96376; 97161; 97166; 99285; G0378; G8987; G8988; G8989; J1644; J2060; J3480; J7030